=== PATIENT | female | born 1990 | race Caucasian/White ===

== ENCOUNTER 2022-09-09 16:36 | Emergency (ER) | payer SELFPAY ==
--- NOTE | 2022-09-09 17:55 | XR_ITS ---
PROCEDURE INFORMATION: Exam: XR Left Knee Exam date and time: 09/09/2022 5:53 PM Age: 31 years old Clinical indication: Injury or trauma; Fall; Blunt trauma; Patient HX: Fell down stairs, left knee pain. TECHNIQUE: Imaging protocol: Radiologic exam of the Left knee. Views: 3 views. COMPARISON: No relevant prior studies available. FINDINGS: Bones/joints: Normal. No fracture, deformity or malalignment. Joint surfaces are preserved. Soft tissues: Normal. No joint effusion detected. IMPRESSION: Negative left knee
--- NOTE | 2022-09-09 17:55 | XR_ITS ---
PROCEDURE INFORMATION: Exam: XR Right Hand Exam date and time: 09/09/2022 5:49 PM Age: 31 years old Clinical indication: Injury or trauma; Fall; Blunt trauma (contusions or hematomas); Finger; Patient HX: Fell down stairs, right thumb pain. TECHNIQUE: Imaging protocol: Radiologic exam of the Right hand. Views: 3 or more views. COMPARISON: No relevant prior studies available. FINDINGS: Bones/joints: There is an acute, mildly comminuted intra-articular fracture involving the base of the 1st distal phalanx with both transverse and vertically oriented fracture lines. There is no significant displacement or malalignment. Soft tissues: Unremarkable. IMPRESSION: Acute mildly comminuted intra-articular fracture base of the 1st distal phalanx..
--- NOTE | 2022-09-09 18:14 | EXP.UTC ---
Discharge Plan Disposition Patient Disposition: Home, Self-Care Condition: Good Prescriptions Prescriptions: New ibuprofen [ibuprofen] 600 mg tablet 600 mg PO Q6HP PRN (Reason: Mild Pain) Qty: 30 0RF Referrals Follow up/Referrals: Rufino Ferreira JR, MD [Physician] - See instructions Provider,MD Yamileth [Primary Care Provider] - See instructions Activity Restrictions/Add. Instructions Additional Instructions/Restrictions: Rest the extremity, apply ice for 15 minutes as tolerated three or four times per day, Elevate the extremity as tolerated while you are resting. Take ibuprofen for pain. I sent in a prescription to your pharmacy. Follow up with Dr. Ferreira (orthopedics). I put in a referral but you need to call his office and schedule an appointment. Follow up with your regular doctor. GO TO THE ER FOR ANY WORSENING SYMPTOMS Clinical Impressions Clinical Impression: Closed fracture of right thumb, Contusion of knee, left Instructions Patient Instructions: Finger Fracture, DI for Finger Fracture, How to Take Care of Your Splint Discharge ED Provider: Sam Andrews [facility] General Stated complaint: ao 09/09, right hand/left knee pain Time Seen by Provider: 09/09/22 18:14 History of Present Illness Provider Complaint: At around 1200 today, she states that she fell and came down on her right hand and left knee. She has had pain at the base of her right thumb and left knee pain since then. She denies any other injury. Related Data Previous Rx's Medication Instructions Recorded ibuprofen 600 mg tablet 600 mg PO Q6HP PRN Mild Pain #30 09/09/22 tabs Allergies Allergy/AdvReac Type Severity Reaction Status Date / Time No Known Allergies Allergy Verified 09/09/22 18:21 [facility] Disclaimer: The information contained in this section may have been updated after the patient was seen, as this information can be updated by other users. Social History Smoking Status: Never smoker alcohol intake: never current occupational status: employed Travel in the last 8 weeks: None ROS Obtained: Yes All systems reviewed & no additional complaints except as documented Constitutional Constitutional: Denies chills and Denies fever(s) Eyes Eyes: Denies eye discharge ENT Ears, Nose, Mouth, and Throat: Denies dizziness, Denies otalgia and Denies sore throat Cardiovascular Cardiovascular: Denies chest pain Respiratory Respiratory: Denies shortness of breath, Denies chest congestion, Denies cough, Denies stridor and Denies wheezing Gastrointestinal Gastrointestingal: Denies nausea or vomiting Musculoskeletal Musculoskeletal: Reports as per HPI Integumentary/Breasts Skin/Breast: Denies redness, Denies rash and Denies wounds Neurologic Neurologic: Denies dizziness and Denies paresthesias Allergic/Immunologic Allergic/Immunologic: Denies wheezing Physical Exam General General appearance: alert and in no apparent distress Head Head exam: atraumatic, normocephalic and normal inspection Eye Eye exam: Present normal appearance, PERRL and EOMI ENT ENT exam: Present normal exam, normal oropharynx, mucous membranes moist, TM's normal bilaterally and normal external ear exam Neck Neck exam: Present normal inspection, full ROM and trachea midline; Absent meningismus or lymphadenopathy Chest Chest inspection: Present normal inspection and symmetric chest wall rise; Absent tenderness Respiratory Respiratory exam: Present normal lung sounds bilaterally; Absent respiratory distress Cardiovascular Cardiovascular exam: Present regular rate and normal rhythm; Absent JVD Abdominal Exam Abdominal exam: Present soft and normal bowel sounds; Absent distention, tenderness or guarding Extremities Exam Extremities exam: Present normal capillary refill; Absent calf tenderness Expanded Upper Extremity Exam Right: Elbow exam: Present normal inspection and
[2022-09-09 18:19] VITALS: BP 144/75; PULSE 86; RESP 17; TEMP 36.6; O2SAT 98; BMI 25.8
[2022-09-09 19:21] VITALS: BP 144/75; PULSE 86; RESP 17; TEMP 36.6
== END 2022-09-09 19:21 | disposition home or self-care (01) ==
PROVIDERS: Emergency Provider Nurse Practitioner Family
DX: S80.02XA Contusion of left knee, initial encounter (principal); S62.511A Displaced fracture of proximal phalanx of right thumb, initial encounter for closed fracture; W19.XXXA Unspecified fall, initial encounter
CPT/HCPCS: 29125; 73130; 73562; 99213; G0463

== ENCOUNTER → 2022-09-30 11:07 | Outpatient (CLI) | payer SELFPAY ==
--- NOTE | 2022-09-30 11:11 | XR_ITS ---
FINAL REPORT CLINICAL HISTORY: bilateral LL pneumonia FINDINGS: Two views of the chest show lungs to be clear. Pulmonary vascularity is normal. Heart and mediastinum are unremarkable. No pleural effusion is present. IMPRESSION: No active disease. Reviewed, Interpreted and Dictated by Valnetin Quiñonez MD Transcribed by Luann Galvan Authenticated and [facility]
[2022-09-30 19:16] LABS: Basophils % 0.3 % (0.1-2.0); Eosinophils # 0.1 K/mm3 (0.0-0.4); Eosinophils % 1.2 % (0.1-12.0); Hematocrit 43.7 % (37.0-47.0); Hemoglobin 14.2 g/dL (12.2-16.2); Lymphocytes # 2.8 K/mm3 (0.7-4.5); Lymphocytes % 28.4 % (10-50); Mean Corpuscular HGB Conc 32.6 g/dL (31.8-35.4); Mean Corpuscular Hemoglobin 29.7 pg (27.0-31.2); Mean Corpuscular Volume 91.3 fl (81-99); Mean Platelet Volume 10.7 fl (7.4-10.4); Monocytes # 0.7 K/mm3 (0.1-1.0); Monocytes % 6.9 % (1.7-9.3); Neutrophils # 6.1 K/mm3 (1.8-7.8); Neutrophils % 63.2 % (37.0-80.0); Platelet Count 436 K/mm3 (142-424); Red Blood Count 4.79 M/mm3 (4.20-5.40); White Blood Count 9.6 K/mm3 (4.8-10.8)
== END ==
PROVIDERS: PCP Family Medicine; Visit Provider Family Medicine
DX: J18.9 Pneumonia, unspecified organism (principal)
CPT/HCPCS: 71046; 85025